=== PATIENT | male | born 1950 ===

== ENCOUNTER → 2017-12-31 13:53 | Outpatient (CLI) | payer OTHER | END | disposition home or self-care (01) | LOC: LAB 13:53 | DX: R97.20 Elevated prostate specific antigen [PSA] (principal) ==

== ENCOUNTER 2018-02-11 07:20 | Outpatient (CLI) | payer OTHER | END 2018-02-11 07:26 | disposition home or self-care (01) | LOC: SONOGRAMA 07:20 | DX: R97.20 Elevated prostate specific antigen [PSA] (principal) ==

== ENCOUNTER 2018-04-06 07:00 | Inpatient (IN) | payer OTHER ==
[~2018-04-06] VITALS: Ht 175.3 cm; Wt 52.6 kg
[2018-04-08] MEDS ORDERED: ULORIC PO (09:51)
[2018-04-08] MEDS ORDERED: BENAZEPRIL HCL40 MG PO (09:51)
[2018-04-08] MEDS ORDERED: ZOCOR20 MG PO (09:52)
[2018-04-08] MEDS ORDERED: NORVASC10 MG PO (09:52)
[2018-04-08] MEDS ORDERED: TRAMADOL HCL E300 MG PO (09:53)
[2018-04-08] MEDS ORDERED: LEVAQUIN750 MG PO (09:53)
[2018-04-08] MEDS ORDERED: SULFAMETHOXAZO1 EACH PO (09:54)
[2018-04-08] MEDS ORDERED: LIPOFLAVOVIT (09:55)
== END 2018-04-16 14:25 | disposition home or self-care (01) | DRG 708 ==
LOC: SURH 04-13 06:00 → O/R 04-13 06:00 → SURH 04-13 07:00
PROVIDERS: Urology
PROC: 07TC0ZZ Resection of Pelvis Lymphatic, Open Approach (ICD-10-PCS; 2018-04-13)
PROC: 0VT00ZZ Resection of Prostate, Open Approach (ICD-10-PCS; principal; 2018-04-13 07:00)
DX: C61 Malignant neoplasm of prostate (principal); I10 Essential (primary) hypertension